=== PATIENT | female | born 1945 | race Caucasian/White ===

== ENCOUNTER → 2018-12-29 | Outpatient (CLI) | payer MEDICARE, OTHER ==
[2014-02-22 09:45] VITALS: BP 140/57
[~2018-12-29] MED LIST: AMBIEN10 MG PO; LEVOTHYROXINE0.05 MG PO; MELOXICAM15 MG PO; METFORMIN500 MG PO; NORCO 325 MG-7.1 TAB PO; PREDNISONE10 MG PO
== END ==
LOC: RAD 09:44 → MAMMO 10:00 → RAD 10:00
DX: Z13.820 Encounter for screening for osteoporosis (principal); M85.852 Other specified disorders of bone density and structure, left thigh; M85.851 Other specified disorders of bone density and structure, right thigh

== ENCOUNTER → 2020-01-04 | Day surgery (SDC) | payer MEDICARE, OTHER ==
[2014-02-22 09:45] VITALS: BP 140/57
== END ==
LOC: MSO 07:32
DX: Z12.11 Encounter for screening for malignant neoplasm of colon (principal); D12.2 Benign neoplasm of ascending colon; R19.7 Diarrhea, unspecified; K21.9 Gastro-esophageal reflux disease without esophagitis; E11.9 Type 2 diabetes mellitus without complications; E78.00 Pure hypercholesterolemia, unspecified; M35.3 Polymyalgia rheumatica; G47.33 Obstructive sleep apnea (adult) (pediatric); F32.9 Major depressive disorder, single episode, unspecified; F41.9 Anxiety disorder, unspecified; M19.90 Unspecified osteoarthritis, unspecified site; Z86.010 Personal history of colon polyps; Z88.8 Allergy status to other drugs, medicaments and biological substances; Z90.49 Acquired absence of other specified parts of digestive tract; Z96.653 Presence of artificial knee joint, bilateral; Z87.891 Personal history of nicotine dependence
CPT/HCPCS: 00813; J2704; J3010; J7030

== ENCOUNTER 2024-08-13 09:01 | Emergency (ER) | payer MEDICARE, OTHER ==
[~2024-08-13] VITALS: Ht 157.5 cm; Wt 67.0 kg
[2024-08-13] MEDS ORDERED: LEVOTHYROXIN0.075 MG PO (09:32)
[2024-08-13] MEDS ORDERED: OZEMPIC1 MG/0.71 SQ (09:33)
[2024-08-13] MEDS ORDERED: ALPRAZOLAM1 MG PO (09:34)
[2024-08-13 10:48] VITALS: BP 109/75
== END 2024-08-13 10:40 | disposition home or self-care (01) ==
LOC: ED 09:01
DX: R53.83 Other fatigue (principal); R51.9 Headache, unspecified